=== PATIENT | female | born 1965 | race Caucasian/White ===

== ENCOUNTER 2022-10-31 14:57 | Emergency (ER) | payer OTHER, MEDICAID ==
[~2022-10-31] VITALS: Ht 160 cm; Wt 52.3 kg
[2022-10-31 16:19] LABS: CLARITY,URINE CLOUDY (Clear); COLOR,URINE YELLOW (Yellow); GLUCOSE, URINE NEGATIVE (Neg); KETONES,URINE NEGATIVE (Neg); LEUKOCYTE ESTERASE ,URINE MODERATE (Neg); NITRITES, URINE NEGATIVE (Neg); OCCULT BLOOD,URINE TRACE-INTACT (Neg); PROTEIN,URINE NEGATIVE (Neg); UROBILINOGEN,URINE 0.2 E.U/dL (0.2-1.0)
[2022-10-31 16:26] LABS: UA COLLECTION TYPE CLN CATCH MIDSTREAM
[2022-10-31 16:44] LABS: BACTERIA,URINE 1+ /HPF (Neg); RBC,URINE 0-2 /HPF (0-2); SQUAMOUS EPITHELIAL CELL,UR MANY /LPF (FEW); TRANSITIONAL EPI CELLS,URINE FEW /HPF; WBC,URINE 20-30 /HPF (0-4)
[2022-10-31 17:50] VITALS: BP 132/87
[2022-10-31] MEDS ORDERED: ketorolac trometh inj. 60 MG/2 ML VIAL IM ONE (18:30)
[2022-10-31] MEDS ORDERED: SULF1TAB49 PO (18:35)
[2022-10-31] MEDS ORDERED: CYCL-1 PO (18:35)
[2022-10-31] MEDS ORDERED: NAPR-56 PO (18:35)
== END 2022-10-31 19:01 | disposition home or self-care (01) ==
LOC: ER 14:58
DX: M54.50 Low back pain, unspecified (principal); M62.830 Muscle spasm of back; N39.0 Urinary tract infection, site not specified; F17.200 Nicotine dependence, unspecified, uncomplicated; Z88.8 Allergy status to other drugs, medicaments and biological substances; V89.2XXA Person injured in unspecified motor-vehicle accident, traffic, initial encounter; Y93.89 Activity, other specified; Y92.89 Other specified places as the place of occurrence of the external cause; Y99.8 Other external cause status
CPT/HCPCS: 72100; 81001; 96372; 99284; J1885; A6449